=== PATIENT | male | born 1955 | race Caucasian/White ===

== ENCOUNTER → 2017-10-15 | Outpatient (CLI) | payer BC ==
[~2017-10-15] MED LIST: ACET-1966 PO; ARI10 PO; ARI2 PO; ARIP10TA4 PO; ASPI81TA94 PO; ATOR20TA22 PO; ATOR20TA65 PO; AZIT-1 PO; BREX2TAB PO; BUPR-472 PO; DIPH0.5D21 IM; EUCA1LOZ51 MM; FINA5TAB67 PO; LOR10 PO; MELA3TAB31 PO; MULT-1379 PO; OLAN10TA21 PO; OMEP-125 PO; RED600CA19 PO; TAMS0.4C25 PO; TAMS0.4C70 PO; TRIA0.2597 PO; TRIA15CR40 TP
== END ==
LOC: LAB 16:15
PROVIDERS: ATTEND Nurse Practitioner
DX: C44.619 Basal cell carcinoma of skin of left upper limb, including shoulder (principal)
CPT/HCPCS: 88305

== ENCOUNTER → 2017-11-16 | Outpatient (CLI) | payer BC | LOC: LAB 14:08 | PROVIDERS: ATTEND Surgery | DX: C44.619 Basal cell carcinoma of skin of left upper limb, including shoulder (principal); L57.0 Actinic keratosis | CPT/HCPCS: 88305 ==